=== PATIENT | male | born 1995 | race Two or more races ===

== ENCOUNTER 2019-08-19 14:55 | Emergency (ER) | payer MEDICARE, MEDICAID ==
[~2019-08-19] VITALS: Ht 167.6 cm; Wt 100.0 kg
[~2019-08-19 14:55] MED LIST: ASPI-1264 PO; CLE150C PO; COL0.6T PO; COLC0.6T67 PO; HYDR-3717 PO; NICO-630 TD; PALI234D IM; SERT-153 PO
[2019-08-19 15:55] LABS: CLARITY,URINE CLEAR (Clear); COLOR,URINE YELLOW (Yellow); GLUCOSE, URINE NEGATIVE (Neg); KETONES,URINE NEGATIVE (Neg); LEUKOCYTE ESTERASE ,URINE NEGATIVE (Neg); NITRITES, URINE NEGATIVE (Neg); OCCULT BLOOD,URINE NEGATIVE (Neg); PROTEIN,URINE NEGATIVE (Neg); UROBILINOGEN,URINE 0.2 E.U/dL (0.2-1.0)
[2019-08-19 15:56] LABS: UA COLLECTION TYPE CLN CATCH MIDSTREAM
[2019-08-19 16:01] LABS: URINE AMPHETAMINE SCREEN NEGATIVE (Neg); URINE BARBITUATE SCREEN NEGATIVE (Neg); URINE BENZODIAZEPINES SCREEN NEGATIVE (Neg); URINE CANNABINOID SCREEN POSITIVE (Neg); URINE COCAINE SCREEN NEGATIVE (Neg); URINE METHADONE SCREEN NEGATIVE (Neg); URINE OPIATE SCREEN NEGATIVE (Neg); URINE PHENCYCLIDINE SCREEN NEGATIVE (Neg)
[2019-08-19 16:21] LABS: BASOPHILS # (AUTO) 0.1 X10'3 (0-0.2); BASOPHILS % (AUTO) 1.1 % (0-1); EOSINOPHILS # (AUTO) 0.2 X10'3 (0-0.9); EOSINOPHILS % (AUTO) 2.2 % (0-6); HEMATOCRIT 48.4 % (42.0-52.0); HEMOGLOBIN 16.9 g/dl (14.0-17.9); LYMPHOCYTES # (AUTO) 1.8 X10'3 (1.1-4.8); LYMPHOCYTES % (AUTO) 19.7 % (21-51); MEAN CORPUSCULAR HEMOGLOBIN 30.9 PG (27.0-31.0); MEAN CORPUSCULAR VOLUME 88.4 FL (78-98); MEAN PLATELET VOLUME 8.5 FL (7.4-10.4); MONOCYTES # (AUTO) 0.7 X10'3 (0-0.9); MONOCYTES % (AUTO) 8.3 % (2-12); NEUTROPHILS # (AUTO) 6.2 X10'3 (1.8-7.7); NEUTROPHILS % (AUTO) 68.7 % (42-75); PLATELET COUNT 330 X10'3 (140-440); RED BLOOD COUNT 5.47 X10'6 (4.70-6.10); RED CELL DISTRIBUTION WIDTH 12.8 % (11.5-14.5)
[2019-08-19 16:29] LABS: ALANINE AMINOTRANSFERASE 72 U/L (12-78); ALBUMIN/GLOBULIN RATIO 0.9 (1.1-1.5); ALKALINE PHOSPHATASE 111 IU/L (46-116); ANION GAP 11 (8-16); ASPARTATE AMINO TRANSFERASE 41 U/L (10-37); BILIRUBIN,TOTAL 0.4 MG/DL (0.1-1.0); BLOOD UREA NITROGEN 8 MG/DL (7-18); BUN/CREATININE RATIO 10.3 (5.4-32.0); CALCIUM 9.4 MG/DL (8.5-10.1); CHLORIDE 105 MMOL/L (99-107); CREATININE 0.78 MG/DL (0.60-1.10); ETHANOL < 0.010 GM/DL (0.0-0.010); GLUCOSE 95 MG/DL (70-104); POTASSIUM 3.8 MMOL/L (3.5-5.1); SODIUM 143 MMOL/L (135-145); TOTAL CARBON DIOXIDE 27.3 MMOL/L (24-32); TOTAL PROTEIN 8.4 G/DL (6.4-8.2); eGFR > 90 ML/MIN
--- NOTE | 2019-08-19 16:30 | NUR ---
Patient awake and alert and c/o feeling suicidal. Patient states he has attempted to hang himself in the past and that is his plan. Patient lives at a recovery home called [facility]. Patient is polite and states he has been feeling like this for a while but it is getting worse. Continue to monitor.
--- NOTE | 2019-08-19 16:52 | NUR ---
FAXED PACKET TO [facility]
[2019-08-19 17:29] VITALS: BP 125/78
[2019-08-19] MEDS ORDERED: NO HOME MEDS (17:46)
--- NOTE | 2019-08-19 17:46 | NUR ---
Patient states he has not been on medications in a while. Patient used to be on Invega injections. Patient has an appointment with Dr Echevarria in August. Continue to monitor.
[2019-08-19] MEDS ORDERED: COLC0.6T67 PO (19:19)
[2019-08-19] MEDS ORDERED: colchicine 0.6mg tablet PO SCH (21:00)
[2019-08-19] MEDS ORDERED: COLC0.6T69 PO (23:37)
== END 2019-08-19 22:51 ==
LOC: ER 14:57
DX: R45.851 Suicidal ideations (principal); F41.9 Anxiety disorder, unspecified; R00.0 Tachycardia, unspecified; J45.909 Unspecified asthma, uncomplicated; F31.9 Bipolar disorder, unspecified; F12.90 Cannabis use, unspecified, uncomplicated; F15.90 Other stimulant use, unspecified, uncomplicated; Z95.1 Presence of aortocoronary bypass graft; Z88.0 Allergy status to penicillin; Z79.82 Long term (current) use of aspirin; Z79.899 Other long term (current) drug therapy
CPT/HCPCS: 36415; 80053; 80305; 80320; 81003; 85025; 93005; 99284; 99285

== ENCOUNTER 2019-08-19 22:19 | Inpatient (IN) | payer MEDICARE, MEDICAID ==
[~2019-08-19] VITALS: Ht 157.5 cm; Wt 95.5 kg
[~2019-08-19 22:19] MED LIST changes: +NO HOME MEDS
[2019-08-19] MEDS ORDERED: acetaminophen 325mg tablet PO PRN (22:25)
[2019-08-19] MEDS ORDERED: mag hydrox/Alum hydrox/simeth 30ml oral suspension PO PRN (22:25)
[2019-08-19] MEDS ORDERED: magnesium hydroxide 30ml (MOM) UD suspension PO PRN (22:25)
[2019-08-19] MEDS ORDERED: loperamide 2mg capsule PO PRN (22:25)
[2019-08-19] MEDS ORDERED: COLC0.6T69 PO (23:37)
[2019-08-19] MEDS: hydrOXYzine 25 MG tablet PO PRN (23:47)
[2019-08-20] MEDS: traZODone 50mg tablet PO PRN ×2 (00:13→20:20)
[2019-08-20] MEDS: LORazepam 1 MG tablet PO PRN ×2 (00:13→20:20)
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
[2019-08-20 07:06] LABS: CHOL/HDL RATIO 5.7 (0.00-4.99); CHOLESTEROL 217 MG/DL (0-200); HDL CHOLESTEROL 38 MG/DL (35-60); LDL CHOLESTEROL 148 MG/DL (50-100); TRIGLYCERIDES 201 MG/DL (20-135)
[2019-08-20 07:08] LABS: HEMOGLOBIN A1C 5.2 % (4.5-6.2)
[2019-08-20 08:00] VITALS: BP 115/80
[2019-08-20] MEDS: colchicine 0.6mg tablet PO SCH ×2 (08:35→20:19)
[2019-08-20] MEDS: hydrOXYzine 25 MG tablet PO PRN (14:51)
--- NOTE | 2019-08-20 17:19 | NUR ---
Nursing Progress Note: Legal hold: Client on voluntary status. Report received from nurse with use of SBAR Why are they here: The patient is a 24 year old male who presented to the ER via EMS with complaints of intermittent heart palpitations and elevated heart rate for the past several days. During the medical workup he told the ER provider that he was having very high anxiety and that he had been having thoughts of suicide with a plan to hang himself. He also told the provider he was hearing voices and having some paranoia. The patient presented to the unit as very cooperative but appeared very anxious and was talking rapidly. He at times had difficulty focusing on the assessment questions. He admitted that he had been having suicidal thoughts to hang himself and those thoughts increased with elevated anxiety. He stated, "I just feel worthless" He reports he has been off psychiatric medications for a number of years. Assessment What has happened this shift: Pt up and visible on the unit. Pt c/o feeling really tired in the am and refused am group and chose to lay in bed. After lunch, pt seemed to have more energy which he used to c/o multiple things going on with his body, he c/o having 2 loose stools (he was directed to let the nurse know if it happened again), he c/o right big toe pain, he c/o wanting to take a shower, he c/o anxiety. Pt was able to sit through portion of afternoon group and he received hydroxyzine for anxiety. Pt polite and apologetic for requesting anything. S/I, H/I: denies A/VH: denies Sleep: no naps today ADL's: pt slightly malodorous Group attendance: afternoon group Were meds taken: yes Any med S/E Mental Status Exam Appearance: green scrubs Eye contact: fair Behavior: needy but cooperative Speech: clear, Mood: anxious Affect: anxious Thought process: perseverative on different issues with his body Thought Content: concerned with body issues Cognition: intact Insight: poor Judgment: fair Interventions PRN's used: atarax Therapeutic interventions: encourage group attendance, 1:1 processing and therapeutic relationship, group therapy, provide safe milieu, active listening; medication administration/education/monitoring, Q 15 minute safety checks. Restraints/seclusion/emergency medication: none Justification of Continued Inpatient Treatment: Pt continues to exhibit high anxiety which affects his ability to fxn properly.
[2019-08-20] MEDS ORDERED: traZODone 50mg tablet PO PRN (18:25)
[2019-08-20] MEDS ORDERED: hydrOXYzine 10 MG tablet PO PRN (18:25)
[2019-08-20] MEDS ORDERED: sertraline 50mg tablet PO ONE (18:25)
[2019-08-20 20:00] VITALS: BP 115/84
[2019-08-20] MEDS: acetaminophen 325mg tablet PO PRN (20:21)
--- NOTE | 2019-08-20 23:35 | NUR ---
Nursing Progress Note: Legal hold: Voluntary Client on voluntary DTS Report received from nurse with use of SBAR: DENISE Gunderson Why are they here: The patient is a 24 year old male who presented to the ER via EMS with complaints of intermittent heart palpitations, and an elevated heart rate for the past several days. During the medical workup he told the ER provider that he was having, "clyde high anxiety levels," and that he had been having thoughts of suicide with a plan to hang himself. He also told the provider he was hearing voices and having some paranoid thoughts. Upon arriving on the [facility] unit, pt. stated, "I just feel worthless." He reported he has been off psychiatric medications for a number of years, has a hx. of substance abuse, and a hx. of pericarditis. Assessment What has happened this shift: Pt. up pacing the hallway talking on the telephone at the beginning of the shift. He presents as pleasant and cooperative, however restless and labile. Pt. complies with taking ordered dose of additional 25mg of Zoloft, however then requests PRN pain medication for chronic left upper tooth pain. This auto service writer obtained PRN Tylenol for pt., however when attempting to administer Tylenol, pt. refused stated, "It's gone now, it was just a fast spike up of pain." This auto service writer encouraged pt. to notify staff if he continued to to experience pain, and he voiced understanding and again requested PRN Tylenol at HS, administered with effectiveness. 1:1 completed, pt. continues to present as anxious, restless, fatigued, and with a slightly increased HR, PRN Ativan administered. Pt. denies S/I, and reports he feels that his depression and anxiety are under control. He states, "I am here voluntarily, and I am going to ask Dr. Echevarria if I can leave tomorrow, I just need a prescription for all of my medications." When questioned by this auto service writer, pt. reports that he plans to continue taking his medications upon discharge, states, "I thought I was better and I didn't need them so I just stopped taking them; I won't fall for that again." Pt. requests PRN Trazodone and a shower before bed to help him relax, per report from [employer], this is his third shower of the day. After shower, pt. retreats to bed, however does not fall immediately asleep, and lays in bed laughing inappropriately to himself. S/I, H/I: Pt. denies S/I at this time and states, "I will never act on my suicidal thoughts." A/VH: Denies, however lays in bed laughing inappropriately to himself. Appears to be responding to internal stimuli at times. Sleep: Pt. reports fatigue and some difficulty with insomnia, administered PRN Trazodone at HS per request, and encouraged to notify staff in needing MRX1 dose, reported understanding. ADL's: Requires some direction from staff at times Group attendance: Pt. reports he attended afternoon group only today Were meds taken: yes Any med S/E: Pt. reports that he feels like his speech is slurred, however this is not noticed by this auto service writer. Will endorse to AM shift and continue to monitor. Mental Status Exam Appearance: Appears neat and appropriately dressed Eye contact: Good Behavior: Cooperative, restless, anxious Speech: WNL Mood: Pleasant, however anxious Affect: Labile Thought process: WNL Thought Content: Possibly ongoing A/GE and preoccupation with anxiety r/t mental health issues and rich concerns. Cognition: A&O X4 Insight: Poor Judgment: Poor to fair Interventions PRN's used: Tylenol, Ativan, Trazodone, and Imodium Therapeutic interventions: Introduced self and established rapport, ensured contract for safety, maintained a safe and therapeutic environment, provided medication education, monitored behavior and need for intervention, provided clear and simple instructions, reoriented to reality as needed, encouraged pt. to notify staff if continuing to experience insomnia, and maintained Q 15 min safety checks. Restraints/seclusion/emergency medication: N/A Justification of Continued Inpatient Treatment: Pt. requires interruption of current crisis, medication adjustments, and a safe and supportive environment.
--- NOTE | 2019-08-21 02:45 | NUR ---
Nursing Note: Pt. awoke with report of insomnia and s/s of continued restlessness, he states, "I'm not tired anymore, I took two naps today." PRN Atrax administered ,and pt. encouraged to try to get some more rest so he would not be tired throughout the day, he voiced understanding. Pt. also requested PRN Maalox per stomach upset, will continue to monitor.
[2019-08-21] MEDS: hydrOXYzine 25 MG tablet PO PRN ×3 (02:49→22:10)
[2019-08-21 08:00] VITALS: BP 125/76
[2019-08-21] MEDS ORDERED: sertraline 25mg tablet PO SCH (08:00)
[2019-08-21] MEDS: atorvastatin 20mg tablet PO SCH (08:28)
[2019-08-21] MEDS: colchicine 0.6mg tablet PO SCH ×2 (08:28→20:31)
[2019-08-21] MEDS: LORazepam 1 MG tablet PO PRN ×2 (09:55→19:33)
--- NOTE | 2019-08-21 13:29 | NUR ---
Nutrition consult re: hyperlipidemia. Noted patient's LDL is 148, Cholesterol 217, and TG 201. Prior to discharge patient will be given written hyperlipidemia education handout with verbal review. Addendum: 08/21/19 at [address] Amended: Links added.
--- NOTE | 2019-08-21 16:23 | NUR ---
Nursing Progress Note: Legal hold: Voluntary Client on voluntary DTS Report received from nurse with use of SBAR: DENISE Prater Why are they here: The patient is a 24 year old male who presented to the ER via EMS with complaints of intermittent heart palpitations, and an elevated heart rate for the past several days. During the medical workup he told the ER provider that he was having, "clyde high anxiety levels," and that he had been having thoughts of suicide with a plan to hang himself. He also told the provider he was hearing voices and having some paranoid thoughts. Upon arriving on the [facility] unit, pt. stated, "I just feel worthless." He reported he has been off psychiatric medications for a number of years, has a hx. of substance abuse, and a hx. of pericarditis. Assessment What has happened this shift: Patient is observed sleeping at change of shift. He is awoken for breakfast and meets this RN in the hallway directly after. Patient states that he is feeling anxious. Medications are administered. Patient then reports Im having shooting pain in my foot and My back hurts, is that related to my potassium? Patients potassium is 3.8. Patient then requests printouts on plantar fachitis and requests to see a doctor regarding chronic tooth pain. Patient states that he is very angry because a peer used foul language and that makes him unhappy. He is encouraged to practice distraction and deep breathing. Patient has numerous physical complaints and various requests throughout the day. Patient denies suicidal ideation, depression and reports decreases symptoms of anxiety. Patient complains of toothpain that comes and goes and is throbbing. S/I, H/I: Pt. denies S A/VH: Denies Sleep: 7hrs NOC ADL's: independant Group attendance: yes Were meds taken: yes Any med S/E: no Mental Status Exam Appearance: Appears neat and appropriately dressed Eye contact: direct Behavior: Cooperative, restless, anxious Speech: soft tone, normal rate and rhythm Mood: reports labile mood, appears stable Affect: congruent to observed mood Thought process: linear Thought Content: focused on various health concerns Cognition: A&O X4 Insight: fair Judgment: Poor to fair Interventions PRN's used: Tylenol, atarax Therapeutic interventions: 1:1 therapeutic assessment, maintained safe therapeutic milieu, provided active listening with positive feedback, provided medication education as needed, monitored behaviors and need for intervention, Q 15 min safety checks. Restraints/seclusion/emergency medication: N/A Justification of Continued Inpatient Treatment: Continued therapeutic support and medication management needed to provide stabilization, prevent decompensation, decreasing risk to patient and readmittance.
[2019-08-21] MEDS: acetaminophen 325mg tablet PO PRN (19:34)
[2019-08-21 19:43] VITALS: BP 127/88
[2019-08-21] MEDS: traZODone 50mg tablet PO PRN (20:32)
--- NOTE | 2019-08-21 23:45 | NUR ---
Nursing Progress Note: Legal hold: Voluntary Client on voluntary DTS Report received from nurse with use of SBAR: DENISE Gunderson Why are they here: The patient is a 24 year old male who presented to the ER via EMS with complaints of intermittent heart palpitations, and an elevated heart rate for the past several days. During the medical workup he told the ER provider that he was having, "clyde high anxiety levels," and that he had been having thoughts of suicide with a plan to hang himself. He also told the provider he was hearing voices and having some paranoid thoughts. Upon arriving on the [facility] unit, pt. stated, "I just feel worthless." He reported he has been off psychiatric medications for a number of years, has a hx. of substance abuse, and a hx. of pericarditis. Assessment What has happened this shift: Pt. up pacing the hallway and interacting with others at the beginning of the shift. He greets this junior technical writer, and immediately requests PRN anxiolytic medication, PRN Ativan administered with reported effectiveness. Pt. subsequently also had a high heart rate r/t his anxiety, however following administration of Ativan, HR rechecked and was WNL. Pt. spends most of the shift displaying restless, impulsive, and intrusive behaviors. He is continuously looking for this junior technical writer to discuss something or make a request, and he will frequently interrupt others to gain this attention. However, pt. is able to be redirected, and he will then acknowledge and apologize for these behaviors. In line with these impulsive behaviors, pt. talks on the phone with his hose wellness manager at the facility where her resides, and afterwards announces that he is "Leaving tomorrow!" Pt. states, "The wellness manager feels like I will be safe there. I just need medication prescriptions from my doctor and I will go." He denies S/I, depression, or any H/A, but admits that he is still having anxiety and insomnia. Pt. reports that he wants to talk to the MD tomorrow about taking a non-addictive anxiolytic besides Ativan. Pt. states, "I feel all of the energy on the unit and I feed off of it." He continues to c/o intermittent left upper tooth pain, PRN Tylenol administered with effectiveness. Pt. has difficulty falling asleep r/t ongoing anxiety/restlessness, PRN Trazodone X2 and Atrax administered with effectiveness. S/I, H/I: Pt. denies A/VH: Denies, however lays in bed laughing or talking to himself at times Sleep: Pt. has difficulty falling asleep r/t ongoing anxiety/restlessness, PRN Trazodone X2 and Atrax administered with effectiveness. ADL's: Requires some redirection from staff at times Group attendance: Pt. reports he attended groups today Were meds taken: yes Any med S/E: None Mental Status Exam Appearance: Appears neat and appropriately dressed Eye contact: Good Behavior: Cooperative, restless, anxious, impulsive, and intrusive Speech: WNL Mood: Pleasant, attention-seeking Affect: Labile Thought process: WNL Thought Content: Possibly ongoing A/GE, and preoccupation with anxiety r/t somatic s/s and need for attention Cognition: A&O X4 Insight: Poor Judgment: Poor to fair Interventions PRN's used: Tylenol, Ativan, Trazodone X2, and Atrax Therapeutic interventions: Ensured contract for safety, maintained a safe and therapeutic environment, provided medication education, provided active listening, monitored behavior and need for intervention, provided clear and simple instructions, reoriented to reality as needed, encouraged pt. to notify staff if continuing to experience insomnia, and maintained Q 15 min safety checks. Restraints/seclusion/emergency medication: N/A Justification of Continued Inpatient Treatment: Per MD Echevarria, pt. is at high risk for relapse and readmission, and continues to require medication adjustments and a safe and supportive environment.
[2019-08-22] MEDS: acetaminophen 325mg tablet PO PRN (01:15)
[2019-08-22 08:00] VITALS: BP 115/71
[2019-08-22] MEDS ORDERED: sertraline 25mg tablet PO SCH (08:00)
[2019-08-22] MEDS: colchicine 0.6mg tablet PO SCH (08:12)
[2019-08-22] MEDS: atorvastatin 20mg tablet PO SCH (08:13)
[2019-08-22] MEDS: hydrOXYzine 25 MG tablet PO PRN (08:13)
[2019-08-22] MEDS: LORazepam 1 MG tablet PO PRN (11:00)
[2019-08-22] MEDS ORDERED: COLC0.6T69 PO (14:05)
[2019-08-22] MEDS ORDERED: SERT100T10 PO (14:05)
[2019-08-22] MEDS ORDERED: ATOR20TA66 PO (14:05)
[2019-08-22] MEDS ORDERED: TRAZ-251 PO (14:05)
[2019-08-22] MEDS ORDERED: HYDR50TA65 PO (14:05)
--- NOTE | 2019-08-22 16:55 | NUR ---
DISCHARGE NOTE The patient was discharged today at 1655 back to his home at [facility]. He left with all instructions, knowing where and when his follow up appts will be, all belongings, and written prescriptions to take to his pharmacy. He was picked up by his friend and was escorted to the lobby by PCT. Mariah
== END 2019-08-22 16:54 | disposition home or self-care (01) | DRG 885 ==
LOC: ADULT MH 22:19
PROVIDERS: ADMIT Psychiatry & Neurology Psychiatry; ATTEND Psychiatry & Neurology Psychiatry
DX: F33.2 Major depressive disorder, recurrent severe without psychotic features (principal); R45.851 Suicidal ideations; F15.21 Other stimulant dependence, in remission; Z95.1 Presence of aortocoronary bypass graft; E78.5 Hyperlipidemia, unspecified; Z79.899 Other long term (current) drug therapy; F41.9 Anxiety disorder, unspecified; M72.2 Plantar fascial fibromatosis; Z87.891 Personal history of nicotine dependence
CPT/HCPCS: 36415; 80053; 80061; 80305; 80320; 81003; 83036; 85025; 87081; 93005; Z7610